=== PATIENT | male | born 1960 | race African-American/Black ===

== ENCOUNTER 2017-03-07 00:17 | Emergency (ER) | payer SELFPAY ==
[~2017-03-07] VITALS: Ht 167.6 cm; Wt 68.3 kg
[2017-03-07 01:54] LABS: HEMATOCRIT 54.6 % (38.0-50.0); MCH 28.3 PG (29.0-34.0); MCHC 32.6 G/DL (30.0-36.0); MCV 86.9 FL (86-99); MEAN PLAT.VOLUME 10.7 uM^3 (9.0-12.4); PLATELET COUNT 329 K/uL (156-360); RBC DIS.WIDTH-CV 13.2 % (11.8-14.6); RBC DIS.WIDTH-SD 42.5 % (39-53); RED BLOOD COUNT 6.28 M/uL (4.00-5.50); WHITE BLOOD COUNT 9.1 K/uL (4.1-10.2)
[2017-03-07 02:01] LABS: CHLORIDE 105 mEq/L (99-109); POTASSIUM 4.5 mEq/L (3.7-5.4); SODIUM 139 mEq/L (136-147)
[2017-03-07 02:03] LABS: GLUCOSE 146 mg/dL (70-99)
[2017-03-07 02:04] LABS: ANION GAP 8 MEQ/L (2-14)
[2017-03-07 02:07] LABS: GFR ESTIMATE (CALCULATED) > 59 mL/min/
[2017-03-07 02:08] LABS: UREA NITROGEN (BUN) 13 mg/dL (9-23)
[2017-03-07 03:19] LABS: TROP-I INTERPRETATION NEGATIVE; TROPONIN-I < 0.01 ng/mL (0.0-0.30)
[2017-03-07] MEDS ORDERED: VENTOLIN HFA18 GM IH (05:50)
[2017-03-07 06:02] VITALS: BP 133/92
[2017-03-07] MEDS ORDERED: PREDNISONE20 MG PO (19:26)
== END 2017-03-07 06:18 | disposition left against medical advice (07) ==
LOC: EME 00:17 → EDBD 00:17 → EME 06:18
DX: J45.901 Unspecified asthma with (acute) exacerbation (principal); F17.200 Nicotine dependence, unspecified, uncomplicated; R00.0 Tachycardia, unspecified
CPT/HCPCS: 71020; 80048; 84484; 85027; 93005; 94640; 99281; 99284; J1100; J3475; J7644

== ENCOUNTER 2017-03-07 17:29 | Emergency (ER) | payer SELFPAY ==
[~2017-03-07] VITALS: Ht 167.6 cm; Wt 68.4 kg
[~2017-03-07 17:29] MED LIST: VENTOLIN HFA18 GM IH
[2017-03-07] MEDS ORDERED: PREDNISONE20 MG PO (19:26)
[2017-03-07 21:31] VITALS: BP 140/99
== END 2017-03-07 21:30 | disposition home or self-care (01) ==
LOC: EME 17:29
DX: J45.901 Unspecified asthma with (acute) exacerbation (principal); J98.11 Atelectasis; F17.200 Nicotine dependence, unspecified, uncomplicated
CPT/HCPCS: 71020; 94640; 99281; 99284; J7512